=== PATIENT | male | born 1955 | race Asian ===

== ENCOUNTER 2022-11-04 15:42 | Emergency (ER) | payer OTHER ==
[~2022-11-04] VITALS: Ht 185.4 cm; Wt 119.8 kg
[2022-11-04 16:29] LABS: PLATELET COUNT 141 K/uL (142-355)
[2022-11-04 16:40] LABS: POTASSIUM 4.7 mmol/L (3.6-5.2)
[2022-11-04] MEDS ORDERED: TYLENOL325 MG PO (19:36)
[2022-11-04] MEDS ORDERED: AMLODIPINE BESYLATE PO (19:37)
[2022-11-04] MEDS ORDERED: DONEPEZIL HYDRO10 M1 PO (19:37)
[2022-11-04] MEDS ORDERED: VENLAFAXINE75 M2 PO (19:38)
[2022-11-04] MEDS ORDERED: HALO5INJ3 INJ (19:39)
[2022-11-04] MEDS ORDERED: HYDRALAZINE25 MG PO (19:40)
[2022-11-04] MEDS ORDERED: LAMOTRIGINE200 MG PO (19:41)
[2022-11-04] MEDS ORDERED: QUET25TA2 PO (19:41)
[2022-11-04] MEDS ORDERED: THIA100T8 PO (19:42)
[2022-11-04] MEDS ORDERED: TRAZ50TA36 PO ×2 (19:44→19:45)
== END 2022-11-04 17:00 | disposition still patient (30) ==
LOC: ED 15:42
PROVIDERS: Family Medicine
DX: R45.6 Violent behavior (principal); Z02.79 Encounter for issue of other medical certificate
CPT/HCPCS: 80053; 85027; 87635; 93005; 99283; U0003